=== PATIENT | female | born 1980 | race Caucasian/White ===

== ENCOUNTER 2022-04-11 12:01 | Emergency (ER) | payer BC, OTHER ==
[~2022-04-11] VITALS: Ht 170.2 cm; Wt 63.5 kg
--- NOTE | 2022-04-11 12:25 | NUR ---
Received pt 42 yrs female came from home c/o pain on lt point fanger and numbness and tingling unble to move no hx truma awake and alert no difformity in here finger
--- NOTE | 2022-04-11 12:50 | NUR ---
Seen by DR. NOONAN
[2022-04-11] MEDS ORDERED: KETOROLAC TROMETHAMINE INJ 30 MG/ML VIAL IM ONE (13:00)
[2022-04-11] MEDS ORDERED: KETOROLAC TROMETHAMINE INJ 30 MG/ML VIAL ONE (13:18)
--- NOTE | 2022-04-11 14:30 | NUR ---
Patient discharged to home in stable condition. Written and verbal after care instructions given. Patient verbalizes understanding of instruction.
[2022-04-11 14:42] VITALS: BP 120/76
== END 2022-04-11 14:43 | disposition home or self-care (01) ==
LOC: ER 12:06
DX: M79.641 Pain in right hand (principal); M79.645 Pain in left finger(s)
CPT/HCPCS: 99283; 96372; J1885